=== PATIENT | male | born 1950 | race Caucasian/White ===

== ENCOUNTER 2017-11-04 11:23 | Outpatient (CLI) | payer OTHER ==
[~2017-11-04] VITALS: Ht 168.9 cm; Wt 111.6 kg
[2017-11-04 11:29] VITALS: BP 147/77
[2017-11-04 12:14] LABS: BILIRUBIN,URINE NEGATIVE (NEGATIVE); CLARITY,URINE CLEAR; COLOR,URINE YELLOW; GLUCOSE, URINE (UA) NEGATIVE (NEGATIVE); KETONES,URINE NEGATIVE (NEGATIVE); LEUKOCYTE ESTERASE ,URINE NEGATIVE (NEGATIVE); NITRITE,URINE NEGATIVE (NEGATIVE); PH,URINE 6.5 (5-9); PROTEIN,URINE NEGATIVE (NEGATIVE); UROBILINOGEN,URINE NORMAL (NORMAL)
[2017-11-04] MEDS ORDERED: FLUO10TA PO (12:19)
[2017-11-04] MEDS ORDERED: TRAZ-28 PO (12:19)
[2017-11-04] MEDS ORDERED: AMLO5TAB2 PO (12:19)
[2017-11-04] MEDS ORDERED: FLUT16SP22 NSEACH (12:19)
[2017-11-04] MEDS ORDERED: ATOR20TA66 PO (12:19)
[2017-11-04] MEDS ORDERED: TRAM50TA2 PO (12:19)
[2017-11-04] MEDS ORDERED: GABA-488 PO (12:19)
[2017-11-04] MEDS ORDERED: FLUO20TA28 PO (12:19)
[2017-11-04] MEDS ORDERED: ALLO300T2 PO (12:19)
[2017-11-04] MEDS ORDERED: CHOL200014 PO (12:19)
[2017-11-04] MEDS ORDERED: LISI-552 PO (12:19)
[2017-11-04] MEDS ORDERED: NAPR-1084 PO (12:19)
[2017-11-04] MEDS ORDERED: HYDR25TA4 PO (12:19)
[2017-11-04 12:30] LABS: BACTERIA,URINE NEGATIVE /HPF; WBC,URINE RARE /HPF
== END 2017-11-04 12:25 | disposition home or self-care (01) ==
LOC: PREOP 11:23
PROVIDERS: ATTEND Radiology Radiation Oncology
DX: Z01.810 Encounter for preprocedural cardiovascular examination (principal); Z01.812 Encounter for preprocedural laboratory examination; Z11.2 Encounter for screening for other bacterial diseases; C61 Malignant neoplasm of prostate
CPT/HCPCS: 81000; 87081; 93005

== ENCOUNTER 2017-11-18 11:25 | Day surgery (SDC) | payer OTHER ==
[~2017-11-18] VITALS: Ht 168.9 cm; Wt 111.6 kg
[2017-11-18 11:25] VITALS: BP 159/108
[~2017-11-18 11:25] MED LIST: ALLO300T2 PO; AMLO5TAB2 PO; ATOR20TA66 PO; CHOL200014 PO; FLUO10TA PO; FLUO20TA28 PO; FLUT16SP22 NSEACH; GABA-488 PO; HYDR25TA4 PO; LISI-552 PO; NAPR-1084 PO; TRAM50TA2 PO; TRAZ-28 PO
[2017-11-18] MEDS ORDERED: LACTATED RINGERS 1,000 ML IV PRN (11:36)
[2017-11-18] MEDS ORDERED: LEVOFLOXACIN 500 MG/100 ML IV 100 ML IV ONE (11:45)
--- NOTE | 2017-11-18 11:56 | Diagnostic Imaging Report ---
INDICATION: Preoperative evaluation. COMPARISON: None. FINDINGS: Two views of the chest are obtained. Heart size is normal. The pulmonary vessels appear unremarkable. There is no pneumothorax, mediastinal widening, or pleural fluid. The lungs are clear. There are degenerative changes in the spine. IMPRESSION: No acute abnormality is demonstrated. Dictated by: Dictated on workstation # [id number]
--- NOTE | 2017-11-18 12:24 | Progress Note-Pre Operative ---
Pre-Operative Progress Note H&P Reviewed The H&P was reviewed, patient examined and no changes noted. Date Seen by Provider: Nov 18, 2017 Time Seen by Provider: 12:00 Date H&P Reviewed: Nov 18, 2017 Time H&P Reviewed: 12:00 Pre-Operative Diagnosis: Prostate cancer cT1c, PSA 8.4, Vancleave 7 (3+4) JUDY HOWELL MD Nov 18, 2017 12:24
--- NOTE | 2017-11-18 12:29 | Discharge Inst-Simple/Standard ---
Discharge Inst-Standard Discharge Medications New, Converted or Re-Newed RX: RX Given to Pt/Family Patient Instructions/Follow Up Plan of Care/Instructions/FU: 1) follow up appointment one month post implant at cancer center 12/16/17 at 1:00 pm 2) follow up appointment with Dr. Davis 12/15/17 at 9:45 am Activity as Tolerated: Yes Discharge Diet: No Restrictions Other Inst to Patient Remove cheney catheter Thursday morning at 8 am. If unable to void call Dr. Davis' s office. JDUY HOWELL MD Nov 18, 2017 12:29
[2017-11-18] MEDS ORDERED: CIPR-226 PO (12:32)
[2017-11-18] MEDS ORDERED: ACET1TAB43 PO (12:32)
[2017-11-18] MEDS ORDERED: DEXAMETHASONE 10 MG/ML (DECADRON) 1 ML VIAL ONE (13:26)
[2017-11-18] MEDS ORDERED: MIDAZOLAM 2 MG/2 ML (VERSED) VIAL ONE (13:26)
[2017-11-18] MEDS ORDERED: fentaNYL INJECTION 100 MCG/2 ML AMP ONE (13:26)
[2017-11-18] MEDS ORDERED: proPOfol 200 MG/20 ML (DIPRIVAN) VIAL IV ONE (13:26)
[2017-11-18] MEDS ORDERED: SEVOFLURANE (ULTANE) 15 ML INHAL SOLN ONE ×4 (13:26→14:06)
[2017-11-18] MEDS ORDERED: ONDANSETRON 4 MG/2 ML (SDV) Z0FRAN ONE (13:26)
[2017-11-18] MEDS ORDERED: ROCURONIUM 50 MG/5 ML (ZEMURON) VIAL IV ONE (13:26)
[2017-11-18] MEDS ORDERED: LIDOCAINE PF 2% 5 ML (XYLOCAINE) VIAL ONE (13:26)
[2017-11-18] MEDS ORDERED: GLYCOPYRROLATE 0.2 MG/ML (ROBINUL) 2 ML VIAL ONE (14:39)
[2017-11-18] MEDS ORDERED: NEOSTIGMINE (BLOXIVERZ ) 1 MG/1ML 10 ML VIAL ONE (14:39)
[2017-11-18] MEDS ORDERED: ONDANSETRON 4 MG/2 ML (SDV) Z0FRAN IVP PRN (15:15)
[2017-11-18] MEDS ORDERED: morphine INJ 10 MG/ML 1ML (SYR OR VIAL) IVP PRN (15:15)
--- NOTE | 2017-11-18 15:28 | Diagnostic Imaging Report ---
INDICATION: Fluoroscopy for brachytherapy. TECHNIQUE: Fluoroscopy was provided for performance of brachytherapy. 9 seconds of fluoroscopy was utilized. A single image was obtained demonstrating radiation seed implants within the prostate gland. IMPRESSION: Fluoroscopy for brachytherapy. Dictated by: Dictated on workstation # [id number]
--- NOTE | 2017-11-18 15:30 | Progress Note-Post Operative ---
Post-Operative Progess Note Surgeon (s)/Tong Carrier (s) Surgeon JUDY HOWELL MD Tong Carrier: Quang BERG MD Pre-Operative Diagnosis Prostate cancer cT1c, PSA 8.4, Mullens 7 (3+4) Post-Operative Diagnosis Same as pre-op Procedure & Operative Findings Date of Procedure 11/18/17 Procedure Performed/Findings 100% Cesium 131 permanent prostate seed implant with cystogram Prostate volume 34.6 cc Anesthesia Type General Estimated Blood Loss Estimated blood loss (mL): Minimal Specimens/Packing Specimens Removed None Packing: None JUDY HOWELL MD Nov 18, 2017 15:30
[2017-11-18 16:00] VITALS: BP 137/67
[2017-11-18 16:01] VITALS: BP 137/67
[2017-11-18 16:30] VITALS: BP 108/78
[2017-11-18 17:00] VITALS: BP 116/73
== END 2017-11-18 17:35 | disposition home or self-care (01) ==
LOC: SDC 11:25
PROVIDERS: ATTEND Radiology Radiation Oncology
DX: C61 Malignant neoplasm of prostate (principal); E78.00 Pure hypercholesterolemia, unspecified; I10 Essential (primary) hypertension; M10.9 Gout, unspecified; F32.9 Major depressive disorder, single episode, unspecified; K21.9 Gastro-esophageal reflux disease without esophagitis; Z96.651 Presence of right artificial knee joint; Z96.652 Presence of left artificial knee joint; Z79.899 Other long term (current) drug therapy
CPT/HCPCS: 71046; 76965; 77290; 77318; 77332; 77336; 77470; 77778

== ENCOUNTER 2017-12-16 12:59 | Outpatient (RCR) | payer OTHER ==
[~2017-12-16 12:59] MED LIST changes: +ACET1TAB43 PO; +CIPR-226 PO
== END 2017-12-21 | disposition home or self-care (01) ==
LOC: ONC 12:59
PROVIDERS: ATTEND Radiology Radiation Oncology
DX: C61 Malignant neoplasm of prostate (principal)
CPT/HCPCS: 77290

== ENCOUNTER 2018-05-18 15:23 | Outpatient (RCR) | payer OTHER ==
[~2018-05-18 15:23] MED LIST changes: -AMLO5TAB2 PO; +AMLO5TAB7 PO; -CHOL200014 PO; +CHOL200085 PO; +TRAZ-189 PO; -TRAZ-28 PO
== END 2018-06-01 | disposition home or self-care (01) ==
LOC: ONC 15:23
PROVIDERS: ATTEND Radiology Radiation Oncology
DX: C61 Malignant neoplasm of prostate (principal)
CPT/HCPCS: 99213